=== PATIENT | male | born 1985 | race Caucasian/White ===

== ENCOUNTER 2021-01-30 11:31 | Emergency (ER) | payer OTHER, SELFPAY ==
[2021-01-30 11:42] VITALS: BP 139/81; PULSE 99; RESP 16; TEMP 36.3; O2SAT 100
--- NOTE | 2021-01-30 11:44 | ED.WOUNDLAC ---
HPI - Wound/Laceration General Chief Complaint: Wound/Laceration Stated Complaint: FINGER LACERATION Source: patient and RN notes reviewed Mode of arrival: ambulatory Limitations: no limitations History of Present Illness HPI narrative: 35-year-old male patient comes to [facility] with a laceration to his left second finger across the MCP joint. Patient states he was cutting and sliced across his finger. Bleeding is controlled. Tetanus status is unknown. Denies numbness or tingling to the distal finger . No interventions prior to arrival. Related Data Home Medications Medication Instructions Recorded Confirmed levothyroxine 150 mcg tablet 150 mcg PO DAILY 03/02/19 10/03/20 modafinil 200 mg tablet 200 mg PO .COMPLEX tablet 03/08/19 10/03/20 buspirone 15 mg tablet 15 mg PO TID 08/24/19 10/03/20 testosterone cypionate 200 mg/mL 200 mg IM . every 2 weeks ml 06/05/20 10/03/20 intramuscular oil dextroamphetamine-amphetamine 10 10 mg PO . noon tablet 10/03/20 10/03/20 mg tablet dextroamphetamine-amphetamine ER 30 mg PO QAM cap 10/03/20 10/03/20 10 mg 24hr capsule,extend release sodium oxybate 500 mg/mL oral 4.5 g PO BID 10/03/20 10/03/20 solution Allergies Allergy/AdvReac Type Severity Reaction Status Date / Time Penicillins Allergy Unknown Verified 07/26/18 09:21 sulfamethizole Allergy Unknown Diarrhea Verified 07/26/18 09:21 trimethoprim Allergy Unknown Diarrhea Verified 07/26/18 09:21 Review of Systems Review of Systems: CONSTITUTIONAL: Denies body aches, fever, chills, or sweats. EYES: Denies visual changes, redness, or discharge. ENT: Denies rhinorrhea, congestion, sore throat, or otalgia. CARDIOVASCULAR: Denies chest pain, palpitations, or edema. RESPIRATORY: Denies cough or dyspnea. GASTROINTESTINAL: Denies abdominal pain, nausea, vomiting, or diarrhea. GENITOURINARY: Denies dysuria or hematuria. SKIN: Laceration to second MCP joint, bleeding controlled MUSCULOSKELETAL: Denies back pain, joint pain, or myalgia. NEUROLOGIC: Denies headache, numbness, tingling, or weakness. PSYCH: Denies depression or anxiety. All systems reviewed & are unremarkable except as noted in HPI and below PMFSH Past Medical History Medical History Acute non-recurrent maxillary sinusitis BMI 29.0-29.9,adult BMI 33.0-33.9,adult Chronic anxiety Chronic depression Chronic rhinitis Cough Encounter for wellness examination in adult Essential (primary) hypertension Irritable bowel syndrome with diarrhea Protein in urine Family History Family History Father Diabetes mellitus, Onset Age: 48 Carcinoma of colon Family history of malignant neoplasm of kidney Mother Family history unknown Grandparent Family history of malignant neoplasm of breast in first degree relative Social History Social History Smoking status: Never smoker Alcohol intake: never Substance use: never Substance use type: does not use Comments Reviewed. Pt has been instructed to follow up with his PCP regarding his elevated blood pressure today. Exam Narrative: GENERAL: Well-appearing, well-nourished, and in no acute distress. HEAD: Normocephalic, atraumatic. EYES: EOMI. No redness or drainage. Conjunctivae normal. ENT: Mucous membranes pink and moist. Nares clear. No rhinorrhea. NECK: Normal AROM. MUSCULOSKELETAL: No bony tenderness. EXTREMITIES: Left second finger with midline 2 cm flap laceration across MCP joint, distal sensation intact SKIN: Warm, dry, no rash. Capillary refill normal. Normal skin turgor. NEURO: No focal deficits. Alert and oriented x3. Gait steady. PSYCH: Normal affect. No signs of depression or anxiety. Course Course Emergency Course: Laceration repair to left MCP joint area. Neurovascular status intact distally to the injury. Vital
[2021-01-30] MEDS: TETANUS,DIPHTHERIA,AC PERTUSSIS ADULT (0.5 ML) BOOSTRIX IM (11:59)
== END 2021-01-30 12:14 | disposition home or self-care (01) ==
PROVIDERS: Emergency Provider Nurse Practitioner Family; PCP Family Medicine
DX: S61.217A Laceration without foreign body of left little finger without damage to nail, initial encounter (principal); W26.0XXA Contact with knife, initial encounter; Z23 Encounter for immunization; I10 Essential (primary) hypertension; F41.9 Anxiety disorder, unspecified; F32.9 Major depressive disorder, single episode, unspecified
CPT/HCPCS: 12001; 90471; 90715; 99212; G0463